=== PATIENT | female | born 1990 | race Asian ===

== ENCOUNTER → 2017-09-27 | Day surgery (SDC) | payer OTHER ==
[~2017-09-27] MED LIST: LIDOCAINE 2% PF Vial for OR 5 ML VIAL.; PROPOFOL 20 ML IV
[2017-09-27] MEDS: IV RINGERS,LACTATED 1000ML 1,000 ML IV (09:41)
[2017-09-27 09:46] LABS: NEG OBC UR NEG; POS OBC UR POS
== END | disposition home or self-care (01) ==
LOC: SURG 09:02
DX: K62.1 Rectal polyp (principal)
CPT/HCPCS: 45385; 81025; 88305; J2704